=== PATIENT | male | born 1995 | race Caucasian/White ===

== ENCOUNTER 2017-04-03 20:35 | Emergency (ER) | payer MEDICAID, OTHER ==
[2017-04-03] MEDS ORDERED: Nalbuphine 10 MG/1 ML Vial IVPUSH ONE ×2 (20:48→22:12)
[2017-04-03] MEDS ORDERED: Sodium Chloride 0.9% 2.5 ML Syringe FLUSH PRN (20:48)
[2017-04-03] MEDS ORDERED: Sodium Chloride 0.9% 10 ML Syringe FLUSH PRN (20:48)
--- NOTE | 2017-04-03 20:57 | EDM.PDOC ---
ED HPI GENERAL MEDICAL PROBLEM - General Chief Complaint: Trauma Stated Complaint: PAIN LT SHOULDER Time Seen by Provider: 04/03/17 20:40 Source of Information: Reports: Patient - History of Present Illness INITIAL COMMENTS - FREE TEXT/NARRATIVE: He presents immediately after [place]. He denies head trauma or neck pain no alcohol intake today no vomiting no abdominal pain no dyspnea no head ache Pain left shoulder, left forearm, left medial thigh He has ambulated Left Shoulder Pain Score (Numeric/FACES): 9 Left Arm Pain Score (Numeric/FACES): 8 Left Groin Pain Score (Numeric/FACES): 8 - Related Data Allergies Allergy/AdvReac Type Severity Reaction Status Date / Time No Known Allergies Allergy Verified 04/03/17 20:52 Home Meds: Home Meds . [No Known Home Meds] 04/03/17 [History] Review of Systems - Review of Systems Review Of Systems: See Below (as per HPI) ED EXAM, GENERAL - Physical Exam Exam: See Below Free Text/Narrative:: alert NAD neck supple head atraumatic chest wall: no deep tenderness; superficial abrasion over left anterior chest no C spine tenderness negative calles sign negative raccoon eyes lungs CTA abdomen non tender LUE: shoulder without bruising or visible deformity; tenderness over the posterior shoulder; marked swelling and moderate tenderness medial proximal volar forearm swollen area about 7x8 cm wrist and hand non tender; normal distal radial pulse. LLE: tenderness and swelling about 12 x10 cm medial proximal thigh; able to ambulate; no pelvic tenderness; normal distal pulse left foot Course - Vital Signs Last Recorded V/S: Last Vital Signs Temp 98.5 F 04/03/17 23:04 Pulse 105 H 04/03/17 23:04 Resp 18 04/03/17 23:04 BP 136/72 04/03/17 23:04 Pulse Ox 97 04/03/17 23:04 - Orders/Labs/Meds Orders: Active Orders 24 hr Category Date Time Status Elbow 2V Lt [CR] Stat Exams 04/03/17 20:45 Taken Femur Min 2V Lt [CR] Stat Exams 04/03/17 20:45 Taken Forearm 2V Lt [CR] Stat Exams 04/03/17 20:45 Taken Humerus Lt [CR] Stat Exams 04/03/17 20:45 Taken Ribs 2V w Chest Lt [CR] Stat Exams 04/03/17 21:41 Taken Shoulder Comp Lt [CR] Stat Exams 04/03/17 20:45 Taken Sodium Chloride 0.9% [Saline Flush] Med 04/03/17 20:48 Active 10 ml FLUSH ASDIRECTED PRN Sodium Chloride 0.9% [Saline Flush] Med 04/03/17 20:48 Active 2.5 ml FLUSH ASDIRECTED PRN Saline Lock Insert [OM.PC] Stat Oth 04/03/17 20:48 Ordered Medication Orders Sodium Chloride (Saline Flush) 10 ml FLUSH ASDIRECTED PRN PRN Reason: Keep Vein Open Sodium Chloride (Saline Flush) 2.5 ml FLUSH ASDIRECTED PRN PRN Reason: Keep Vein Open Meds: Medications Generic Name Dose Route Start Last Admin Trade Name Freq PRN Reason Stop Dose Admin Sodium Chloride 10 ml 04/03/17 20:48 Saline Flush FLUSH ASDIRECTED PRN Keep Vein Open Sodium Chloride 2.5 ml 04/03/17 20:48 Saline Flush FLUSH ASDIRECTED PRN Keep Vein Open Discontinued Medications Generic Name Dose Route Start Last Admin Trade Name Freq PRN Reason Stop Dose Admin Hydromorphone HCl 2 mg 04/03/17 23:06 Dilaudid IVPUSH 04/03/17 23:07 ONETIME ONE Nalbuphine HCl 20 mg 04/03/17 20:48 04/03/17 21:01 Nubain IVPUSH 04/03/17 20:49 20 mg ONETIME ONE Administration Nalbuphine HCl 10 mg 04/03/17 22:12 04/03/17 22:19 Nubain IVPUSH 04/03/17 22:13 10 mg ONETIME ONE Administration Departure - Departure Time of Disposition: 23:13 Disposition: Home, Self-Care 01 Clinical Impression: Contusion, Hematoma - Discharge Information Instructions: Contusion, [id number], Hematoma, [id number] Referrals: PCP,None [Primary Care Provider] - Forms: ED Department Discharge Additional Instructions: norco is for short term use as it may be habit forming, sedating and constipating do not use tylenol with norco arm sling as needed recheck with a doctor if you are still having shoulder pain after two weeks. - My Orders Last 24 Hours: My Active Orders 04/03/17 20:45 Elbow 2V Lt [CR] Stat Femur Min 2V Lt [CR] Stat Forearm 2V Lt [CR] Stat Humerus Lt [CR] Stat Shoulder Comp Lt [CR] Stat 04/03/17 20:48 Sodium Chloride 0.9% [Saline Flush] 10 ml FLUSH ASDIRECTED PRN Sodium Chloride 0.9% [Saline Flush] 2.5 ml FLUSH ASDIRECTED PRN Saline Lock Insert [OM.PC] Stat 04/03/17 21:41 Ribs 2V w Chest Lt [CR] Stat - Assessment/Plan Last 24 Hours: My Active Orders 04/03/17 20:45 Elbow 2V Lt [CR] Stat Femur Min 2V Lt [CR] Stat Forearm 2V Lt [CR] Stat Humerus Lt [CR] Stat Shoulder Comp Lt [CR] Stat 04/03/17 20:48 Sodium Chloride 0.9% [Saline Flush] 10 ml FLUSH ASDIRECTED PRN Sodium Chloride 0.9% [Saline Flush] 2.5 ml FLUSH ASDIRECTED PRN Saline Lock Insert [OM.PC] Stat 04/03/17 21:41 Ribs 2V w Chest Lt [CR] Stat
[2017-04-03] MEDS ORDERED: HYDROmorphone 2 MG/ML Syringe IVPUSH ONE (23:06)
[2017-04-04 00:04] VITALS: BP 130/79
--- NOTE | 2017-04-06 17:04 | CR ---
EXAM DATE: 04/03/17 PATIENT'S AGE: 21 Patient: GRAHAM LUNA Facility: [place], [place] Site . Site : 1995 Study: XRay Shoulder Left [id number]/22/2017 10:29:26 PM Ordering Physician: Doctor Guillory Final Report: INDICATION: Shoulder pain TECHNIQUE: Left shoulder, two views COMPARISON: None FINDINGS: Bones: Alignment is normal. No acute fractures or aggressive osseous lesions seen. Joint spaces: The glenohumeral joint is unremarkable. The acromioclavicular (AC ) joint is normal in appearance. Soft tissues: The visualized hemithorax is unremarkable in appearance. No radiopaque foreign bodies are noted. IMPRESSION: 1. No acute osseous injuries are identified. Dictated by Jad Gonzalez MD @ 04/03/2017 11:05:36 PM Dictated by: Jad Gonzalez MD @ 04/03/2017 23:05:41 (Electronic Signature) Report Signed by Proxy. ALEXANDRE
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
--- NOTE | 2017-04-06 17:10 | CR ---
EXAM DATE: 04/03/17 PATIENT'S AGE: 21 Patient: GRAHAM LUNA Facility: [place], [place] : 1995 Study: XRay Extremity Left HUMERUS [id number]/22/2017 10:43:53 PM Ordering Physician: JAD YEBOAH MD Final Report: INDICATION: Arm pain TECHNIQUE: Humerus radiographs 2 views COMPARISON: None FINDINGS: Bones: Alignment is normal. No acute fractures or aggressive osseous lesions seen. Joint spaces: The visualized glenohumeral and elbow joints are unremarkable. The elbow joint is not profiled and if there is pain or tenderness in this region, dedicated views of the elbow are recommended. Soft tissues: Unremarkable. No radiopaque foreign bodies seen. IMPRESSION: 1. No acute osseous injuries are identified. Dictated by Jad Gonzalez MD @ 04/03/2017 11:15:59 PM Dictated by: Jad Gonzalez MD @ 04/03/2017 23:16:04 (Electronic Signature) Report Signed by Proxy. MTDD
--- NOTE | 2017-04-06 17:11 | CR ---
EXAM DATE: 04/03/17 PATIENT'S AGE: 21 Patient: GRAHAM LUNA Facility: [place], [place] : 1995 Study: XRay Extremity Left ELBOW [id number]/22/2017 10:44:11 PM Ordering Physician: JAD YEBOAH MD Final Report: INDICATION: Elbow pain TECHNIQUE: Elbow radiographs 3 views COMPARISON: None FINDINGS: Bones: Alignment is normal. No acute fractures or aggressive osseous lesions seen. Joint spaces: The joint spaces are preserved. No joint effusion is identified. Soft tissues: Unremarkable. No radiopaque foreign bodies are noted. IMPRESSION: 1. No acute osseous injuries are identified. Dictated by Jad Gonzalez MD @ 04/03/2017 11:17:25 PM Dictated by: Jad Gonzalez MD @ 04/03/2017 23:17:31 (Electronic Signature) Report Signed by Proxy. [facility]
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
== END 2017-04-03 23:38 | disposition home or self-care (01) ==
LOC: MW.ED 20:35
DX: S20.312A Abrasion of left front wall of thorax, initial encounter (principal); T14.8 Other injury of unspecified body region; W55.29XA Other contact with cow, initial encounter
CPT/HCPCS: 71101; 73030; 73060; 73070; 73090; 73552; 96374; 96375; 96376; 99284; J1170; J2300; 99283; A4566